=== PATIENT | male | born 1970 | race Caucasian/White ===

== ENCOUNTER 2017-07-03 07:36 | Day surgery (SDC) | payer OTHER ==
[~2017-07-03] VITALS: Ht 177.8 cm; Wt 86.6 kg
[~2017-07-03 07:36] MED LIST: /CELE20CA OR; /METH500TA OR; CETI10TA OR; FLEXERIL PO; IBUP80TA PO; LIPI10TA PO; LIPI20TA PO; MUCI600T34 PO; NEUR300C OR; OMEP20TA7 OR; PERC5TAB8 PO; TPS Cream TD; TRAZ50TA OR; ULTR50TA PO; VICO5TAB PO; ZEST1TAB7 PO
[2017-07-03] MEDS ORDERED: NS 1,000 ML IV ONE (08:00)
[2017-07-03] MEDS ORDERED: LIDOCAINE 2% INJ 100 MG/5 ML SDV (FOR ANES.) As Ordered ONE (08:55)
[2017-07-03] MEDS ORDERED: PROPOFOL 200 MG/20 ML VIAL As Ordered ONE ×3 (08:55→09:19)
[2017-07-03] MEDS ORDERED: GLYCOPYRROLATE INJ 0.2 MG/ML 2 ML VIAL As Ordered ONE (08:58)
--- NOTE | 2017-07-03 09:33 | ROOR ---
Patient Name: Karin Gray Procedure Date: 07/03/2017 8:52 AM Date of : 1970 Age: 47 Room: [facility] Gender: Male Note Status: Finalized Procedure: Total Colonoscopy to Cecum + Cold Snare Polypectomy + Hemoclips Indications: Screening in patient at increased risk: Colorectal cancer in mother 60 or older Providers: Pavel Collins MD Referring MD: NGUYEN CEDILLO MD Requesting Provider: Medicines: Monitored Anesthesia Care Complications: No immediate complications. Procedure: Pre-Anesthesia Assessment: - The heart rate, respiratory rate, oxygen saturations, blood pressure, adequacy of pulmonary ventilation, and response to care were monitored throughout the procedure. The Colonoscope was introduced through the anus and advanced to the cecum, identified by appendiceal orifice and ileocecal valve. The colonoscopy was performed without difficulty. The patient tolerated the procedure well. The quality of the bowel preparation was excellent. Findings: The perianal and digital rectal examinations were normal. Non-bleeding internal hemorrhoids were found during retroflexion. The hemorrhoids were small and Grade I (internal hemorrhoids that do not prolapse). Multiple small and large-mouthed diverticula were found in the recto-sigmoid colon, sigmoid colon and descending colon. A large polyp was found in the proximal ascending colon. The polyp was carpet-like. The polyp was removed with a cold snare. Polyp resection was incomplete. The resected tissue was retrieved. To prevent bleeding after the polypectomy, two hemostatic clips were successfully placed (MR conditional). There was no bleeding at the end of the procedure. The exam was otherwise without abnormality on direct and retroflexion views. Impression: - Non-bleeding internal hemorrhoids. - Diverticulosis in the recto-sigmoid colon, in the sigmoid colon and in the descending colon. - One large polyp in the proximal ascending colon, removed with a cold snare. Incomplete resection. Resected tissue retrieved. Clips (MR conditional) were placed. - The examination was otherwise normal on direct and retroflexion views. - The exam was otherwise normal to the cecum. Recommendation: - Patient has a contact number available for emergencies. The signs and symptoms of potential delayed complications were discussed with the patient. Return to normal activities tomorrow. Written discharge instructions were provided to the patient. - High fiber diet. - Discharge patient to home. - Continue present medications. - Await pathology results. - Repeat colonoscopy in 6 months for surveillance based on pathology results. - Return to referring physician. - Check Portal Online for Path Results.([email or web address]) - Telephone GI clinic for pathology results in 1 week. - The findings and recommendations were discussed with the patient's family. Pavel Collins MD Pavel Collins MD 07/03/2017 9:33:07 AM This report has been signed electronically. Number of Addenda: 0 Note Initiated On: 07/03/2017 8:52 AM Estimated Blood Loss: Estimated blood loss: none.
[2017-07-03 09:55] VITALS: BP 130/80
== END 2017-07-03 10:08 | disposition home or self-care (01) ==
LOC: M OPP 07:36
PROVIDERS: ATTEND Internal Medicine Gastroenterology
DX: Z12.11 Encounter for screening for malignant neoplasm of colon (principal); D12.0 Benign neoplasm of cecum; K57.30 Diverticulosis of large intestine without perforation or abscess without bleeding; K64.0 First degree hemorrhoids; E78.00 Pure hypercholesterolemia, unspecified; Z79.899 Other long term (current) drug therapy; Z80.0 Family history of malignant neoplasm of digestive organs

== ENCOUNTER 2018-02-14 12:04 | Day surgery (SDC) | payer OTHER ==
[~2018-02-14 12:04] MED LIST changes: -/CELE20CA OR; -/METH500TA OR; -CETI10TA OR; -FLEXERIL PO; -IBUP80TA PO; +LIDOCAINE 2% INJ 100 MG/5 ML SDV (FOR ANES.) As Ordered; -LIPI10TA PO; -LIPI20TA PO; -MUCI600T34 PO; -NEUR300C OR; -OMEP20TA7 OR; -PERC5TAB8 PO; +PROPOFOL 200 MG/20 ML VIAL As Ordered; -TPS Cream TD; -TRAZ50TA OR; -ULTR50TA PO; -VICO5TAB PO; -ZEST1TAB7 PO
[2018-02-14] MEDS: NS 1,000 ML IV ×2 (12:15→12:24)
[2018-02-14] MEDS ORDERED: ELEVIEW SUBMUCOSAL INJ 10ML AMP As Ordered ×2 (13:45→13:46)
[2018-02-14] MEDS ORDERED: PROPOFOL 200 MG/20 ML VIAL As Ordered ×3 (13:49→14:10)
== END 2018-02-14 14:58 | disposition home or self-care (01) ==
LOC: M OPP 12:04
DX: Z09 Encounter for follow-up examination after completed treatment for conditions other than malignant neoplasm (principal); D37.4 Neoplasm of uncertain behavior of colon; Z86.010 Personal history of colon polyps; D12.2 Benign neoplasm of ascending colon; K64.0 First degree hemorrhoids; E78.5 Hyperlipidemia, unspecified; K21.9 Gastro-esophageal reflux disease without esophagitis; Z86.79 Personal history of other diseases of the circulatory system; M51.9 Unspecified thoracic, thoracolumbar and lumbosacral intervertebral disc disorder; G47.30 Sleep apnea, unspecified; R06.83 Snoring; Z87.891 Personal history of nicotine dependence; Z79.899 Other long term (current) drug therapy
CPT/HCPCS: 45385

== ENCOUNTER 2018-05-21 06:31 | Day surgery (SDC) | payer OTHER ==
[~2018-05-21 06:31] MED LIST changes: -LIDOCAINE 2% INJ 100 MG/5 ML SDV (FOR ANES.) As Ordered; +NS 1,000 ML IV; -PROPOFOL 200 MG/20 ML VIAL As Ordered
[2018-05-21] MEDS: NS 1,000 ML IV (07:00)
[2018-05-21] MEDS ORDERED: PROPOFOL 500 MG/50 ML VIAL As Ordered (07:35)
[2018-05-21] MEDS ORDERED: LIDOCAINE 2% INJ 100 MG/5 ML SDV (FOR ANES.) As Ordered (07:35)
[2018-05-21] MEDS ORDERED: PROPOFOL 200 MG/20 ML VIAL As Ordered (07:48)
== END 2018-05-21 08:35 | disposition home or self-care (01) ==
LOC: M OPP 06:31
DX: Z09 Encounter for follow-up examination after completed treatment for conditions other than malignant neoplasm (principal); D37.4 Neoplasm of uncertain behavior of colon; Z86.010 Personal history of colon polyps; D12.2 Benign neoplasm of ascending colon; K64.0 First degree hemorrhoids; K57.30 Diverticulosis of large intestine without perforation or abscess without bleeding; Z86.03 Personal history of neoplasm of uncertain behavior; R00.8 Other abnormalities of heart beat; E78.5 Hyperlipidemia, unspecified; K21.9 Gastro-esophageal reflux disease without esophagitis; R12 Heartburn; M54.89 Other dorsalgia; G47.30 Sleep apnea, unspecified; R06.83 Snoring; Z79.899 Other long term (current) drug therapy
CPT/HCPCS: 45388

== ENCOUNTER 2018-08-27 07:15 | Day surgery (SDC) | payer OTHER ==
[~2018-08-27] VITALS: Ht 177.8 cm; Wt 95.9 kg
[~2018-08-27 07:15] MED LIST changes: +/CELE20CA OR; +/METH500TA OR; +ACET-683 PO; +CETI10CH PO; +CETI10TA OR; +FLEXERIL PO; +IBUP-1114 PO; +IBUP80TA PO; +LIPI10TA PO; +LIPI20TA PO; +MUCI600T34 PO; +NEUR300C OR; -NS 1,000 ML IV; +NS 1,000 ML IV ONE; +OMEP20CA3 PO; +OMEP20TA7 OR; +PERC5TAB8 PO; +TPS Cream TD; +TRAZ50TA OR; +ULTR50TA PO; +VICO5TAB PO; +ZEST1TAB7 PO
[2018-08-27] MEDS ORDERED: LIDOCAINE 2% INJ 100 MG/5 ML SDV (FOR ANES.) As Ordered ONE (07:57)
[2018-08-27] MEDS ORDERED: PROPOFOL 200 MG/20 ML VIAL As Ordered ONE (07:58)
--- NOTE | 2018-08-27 09:42 | ROOR ---
Patient Name: Karin Gray Procedure Date: 08/27/2018 9:13 AM Date of : 1970 Age: 48 Room: [facility] Gender: Male Note Status: Finalized Procedure: Total Colonoscopy to Cecum + Biopsy Polypectomy Indications: Follow-up for history of colon polyps of uncertain behavior Providers: Pavel Collins MD Referring MD: NGUYEN CEDILLO MD Requesting Provider: Medicines: Monitored Anesthesia Care Complications: No immediate complications. Procedure: Pre-Anesthesia Assessment: - The heart rate, respiratory rate, oxygen saturations, blood pressure, adequacy of pulmonary ventilation, and response to care were monitored throughout the procedure. The Colonoscope was introduced through the anus and advanced to the cecum, identified by appendiceal orifice and ileocecal valve. The colonoscopy was performed without difficulty. The patient tolerated the procedure well. The quality of the bowel preparation was excellent. Findings: The perianal and digital rectal examinations were normal. Non-bleeding internal hemorrhoids were found during retroflexion. The hemorrhoids were small and Grade I (internal hemorrhoids that do not prolapse). Multiple small and large-mouthed diverticula were found in the recto-sigmoid colon, sigmoid colon and descending colon. A medium polyp was found in the proximal ascending colon. The polyp was sessile. The polyp was removed with a jumbo cold forceps. Resection and retrieval were complete. The exam was otherwise without abnormality on direct and retroflexion views. Impression: - Non-bleeding internal hemorrhoids. - Diverticulosis in the recto-sigmoid colon, in the sigmoid colon and in the descending colon. - One medium polyp in the proximal ascending colon, removed with a jumbo cold forceps. Resected and retrieved. - The examination was otherwise normal on direct and retroflexion views. - The exam was otherwise normal to the cecum. Recommendation: - Patient has a contact number available for emergencies. The signs and symptoms of potential delayed complications were discussed with the patient. Return to normal activities tomorrow. Written discharge instructions were provided to the patient. - Resume previous diet. - Discharge patient to home. - Continue present medications. - Await pathology results. - Telephone GI clinic for pathology results in 1 week. - Repeat colonoscopy for surveillance based on pathology results. - Return to referring physician. - The findings and recommendations were discussed with the patient's family. Pavel Collins MD Pavel Collins MD 08/27/2018 9:41:36 AM This report has been signed electronically. Number of Addenda: 0 Note Initiated On: 08/27/2018 9:13 AM Estimated Blood Loss: Estimated blood loss: none.
[2018-08-27 10:12] VITALS: BP 130/87
== END 2018-08-27 10:14 | disposition home or self-care (01) ==
LOC: M OPP 07:15
PROVIDERS: ATTEND Internal Medicine Gastroenterology
DX: D12.2 Benign neoplasm of ascending colon (principal); K64.0 First degree hemorrhoids; K57.30 Diverticulosis of large intestine without perforation or abscess without bleeding; Z86.010 Personal history of colon polyps

== ENCOUNTER 2018-12-31 12:11 | Day surgery (SDC) | payer OTHER ==
[~2018-12-31] VITALS: Ht 177.8 cm; Wt 98.3 kg
[~2018-12-31 12:11] MED LIST changes: -/CELE20CA OR; -/METH500TA OR; +CELE1CAP4 OR; +METH1TAB40 OR; +PROPOFOL 200 MG/20 ML VIAL As Ordered ONE
--- NOTE | 2018-12-31 13:47 | ROOR ---
Patient Name: Karin Gray Procedure Date: 12/31/2018 1:12 PM Date of : 1970 Age: 48 Room: [facility] Gender: Male Note Status: Finalized Procedure: Total Colonoscopy to Cecum + Cold Snare Polypectomy + Hemoclips + APC Indications: High risk colon cancer surveillance: Personal history of colonic polyps, High risk colon cancer surveillance: Personal history of adenoma with high grade dysplasia, High risk colon cancer surveillance: Personal history of adenoma with villous component Providers: Pavel Collins MD Referring MD: NGUYEN CEDILLO MD Requesting Provider: Medicines: Monitored Anesthesia Care Complications: No immediate complications. Procedure: Pre-Anesthesia Assessment: - The heart rate, respiratory rate, oxygen saturations, blood pressure, adequacy of pulmonary ventilation, and response to care were monitored throughout the procedure. The Colonoscope was introduced through the anus and advanced to the cecum, identified by appendiceal orifice and ileocecal valve. The colonoscopy was performed without difficulty. The patient tolerated the procedure well. The quality of the bowel preparation was excellent. Findings: The perianal and digital rectal examinations were normal. Non-bleeding internal hemorrhoids were found during retroflexion. The hemorrhoids were small and Grade I (internal hemorrhoids that do not prolapse). Multiple small and large-mouthed diverticula were found in the recto-sigmoid colon, sigmoid colon and descending colon. A medium polyp was found in the proximal ascending colon. The polyp was sessile. The polyp was removed with a cold snare. Resection and retrieval were complete. Coagulation for destruction of remaining portion of lesion using argon plasma at 0.8 liters/minute and 20 jeffery was successful. To prevent bleeding after the polypectomy, two hemostatic clips were successfully placed (MR conditional). There was no bleeding at the end of the procedure. The exam was otherwise without abnormality on direct and retroflexion views. Impression: - Non-bleeding internal hemorrhoids. - Diverticulosis in the recto-sigmoid colon, in the sigmoid colon and in the descending colon. - One medium polyp in the proximal ascending colon, removed with a cold snare. Resected and retrieved. Treated with argon plasma coagulation (APC). Clips (MR conditional) were placed. - The examination was otherwise normal on direct and retroflexion views. - The exam was otherwise normal to the cecum. Recommendation: - Patient has a contact number available for emergencies. The signs and symptoms of potential delayed complications were discussed with the patient. Return to normal activities tomorrow. Written discharge instructions were provided to the patient. - High fiber diet. - Discharge patient to home. - Continue present medications. - Await pathology results. - Telephone GI clinic for pathology results in 1 week. - Repeat colonoscopy in 6 months for surveillance based on pathology results. - Return to referring physician. - The findings and recommendations were discussed with the patient's family. Pavel Collins MD Pavel Collins MD 12/31/2018 1:47:15 PM Electronically signed by Pavel Collins MD Number of Addenda: 0 Note Initiated On: 12/31/2018 1:12 PM Estimated Blood Loss: Estimated blood loss: none.
[2018-12-31 14:00] VITALS: BP 131/83
== END 2018-12-31 14:18 | disposition home or self-care (01) ==
LOC: M OPP 12:11
PROVIDERS: ATTEND Internal Medicine Gastroenterology
DX: D12.2 Benign neoplasm of ascending colon (principal); K64.0 First degree hemorrhoids; K57.30 Diverticulosis of large intestine without perforation or abscess without bleeding; Z86.010 Personal history of colon polyps